=== PATIENT | male | born 1940 | race Caucasian/White ===

== ENCOUNTER → 2016-09-07 | Outpatient (CLI) | payer BC ==
[~2016-09-07] VITALS: Ht 175.3 cm; Wt 87.5 kg
[~2016-09-07] MED LIST: ATEN50TA2 PO; ATOR1TAB19 PO; FELO5TAB3 PO; GLIP5TAB15 PO; INVO100T PO; JANU100T PO; LIDOCAINE 2% INJ 100 MG/5 ML SDV (FOR ANES.) As Ordered ONE; LISI40TAB PO; METF1000 PO; NS 1,000 ML IV ONE; PROPOFOL 200 MG/20 ML VIAL As Ordered ONE
--- NOTE | 2016-09-07 10:49 | ROOR ---
Patient Name: Cristhian Lopez Procedure Date: 09/07/2016 10:24 AM Date of : 1940 Age: 75 Room: [facility] Gender: Male Note Status: Finalized Procedure: Colonoscopy to Cecum + APC Indications: Rectal bleeding, Follow-up of radiation proctitis, For therapy of radiation proctitis Providers: Ghulam Barr MD Referring MD: DEDE DENT JR, MD Requesting Provider: Medicines: Monitored Anesthesia Care Complications: No immediate complications. Procedure: Pre-Anesthesia Assessment: - The heart rate, respiratory rate, oxygen saturations, blood pressure, adequacy of pulmonary ventilation, and response to care were monitored throughout the procedure. The Colonoscope was introduced through the anus and advanced to the cecum, identified by appendiceal orifice and ileocecal valve. The colonoscopy was performed without difficulty. The patient tolerated the procedure well. The quality of the bowel preparation was excellent. Findings: The perianal and digital rectal examinations were normal. Non-bleeding internal hemorrhoids were found during retroflexion. The hemorrhoids were small and Grade I (internal hemorrhoids that do not prolapse). The mucosa vascular pattern in the rectum was diffusely increased. Coagulation for hemostasis using argon plasma at 1 liter/minute and 30 [place] was successful. Multiple small-mouthed diverticula were found in the recto-sigmoid colon, sigmoid colon and descending colon. The exam was otherwise without abnormality on direct and retroflexion views. Impression: - Non-bleeding internal hemorrhoids. - Increased mucosa vascular pattern in the rectum. Treated with argon plasma coagulation (APC). - Diverticulosis in the recto-sigmoid colon, in the sigmoid colon and in the descending colon. - The examination was otherwise normal on direct and retroflexion views. - No specimens collected. - The exam was otherwise normal to the cecum. Recommendation: - Patient has a contact number available for emergencies. The signs and symptoms of potential delayed complications were discussed with the patient. Return to normal activities tomorrow. Written discharge instructions were provided to the patient. - High fiber diet. - Discharge patient to home. - Continue present medications. - Repeat colonoscopy for symptoms only. - Return to referring physician. - The findings and recommendations were discussed with the patient's family. Ghulam Barr MD Ghulam Barr MD 09/07/2016 10:49:00 AM This report has been signed electronically. Number of Addenda: 0 Note Initiated On: 09/07/2016 10:24 AM Estimated Blood Loss: Estimated blood loss: none.
[2016-09-07 11:15] VITALS: BP 125/59
== END ==
LOC: M OPP 09:12
PROVIDERS: ATTEND Internal Medicine Gastroenterology
DX: Z09 Encounter for follow-up examination after completed treatment for conditions other than malignant neoplasm (principal); K62.7 Radiation proctitis; K62.5 Hemorrhage of anus and rectum; K64.0 First degree hemorrhoids; K57.30 Diverticulosis of large intestine without perforation or abscess without bleeding; Z86.010 Personal history of colon polyps; Z80.0 Family history of malignant neoplasm of digestive organs; Z85.46 Personal history of malignant neoplasm of prostate; Z92.3 Personal history of irradiation; I10 Essential (primary) hypertension; E11.9 Type 2 diabetes mellitus without complications; E78.5 Hyperlipidemia, unspecified; Z85.828 Personal history of other malignant neoplasm of skin; Z87.891 Personal history of nicotine dependence; Z79.84 Long term (current) use of oral hypoglycemic drugs; Z79.899 Other long term (current) drug therapy; Z88.1 Allergy status to other antibiotic agents

== ENCOUNTER → 2016-12-02 | Outpatient (CLI) | payer BC ==
[~2016-12-02] MED LIST changes: +FELO5TAB PO; -FELO5TAB3 PO; +GLIP1TAB49 PO; -GLIP5TAB15 PO; -LIDOCAINE 2% INJ 100 MG/5 ML SDV (FOR ANES.) As Ordered ONE; -METF1000 PO; +METF10004 PO; -NS 1,000 ML IV ONE; -PROPOFOL 200 MG/20 ML VIAL As Ordered ONE
--- NOTE | 2016-12-02 10:39 | RADONC ---
RADIATION ONCOLOGY FOLLOWUP NOTE DATE: 12/02/2016 CHART NUMBER: [id number] DIAGNOSIS: Prostate cancer. STAGE: IIB, [id number]. 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 The patient presents today reporting that he is doing quite well with no complaints at this time related to his radiation therapy or disease. He has no urinary or bowel difficulties, and no bone pain. REVIEW OF SYSTEMS: The patient's review of systems is noncontributory. He denies nausea, vomiting, fevers, chills, night sweats, diplopia, headaches, anxiety or depression, anorexia, weight loss, visual disturbances, chest pain, urinary or bowel difficulties, bone pain or neurological problems. PHYSICAL EXAMINATION: The patient is a well-developed, well-nourished male in no acute distress. HEENT exam is normocephalic, atraumatic. Extraocular movements are intact. There is no palpable cervical, supraclavicular, infraclavicular, axillary, or inguinal lymphadenopathy present. Lungs are clear to auscultation and percussion. Heart has a regular rate and rhythm. Abdomen is benign with no hepatosplenomegaly, masses, or tenderness. Rectal examination reveals a normal anal sphincter tone. His prostate is smooth with no evidence of nodularity. Skeletal examination reveals no tenderness to pressure or percussion of the bony skeleton. Extremities reveal no clubbing, cyanosis, or edema. Neurologic exam is grossly intact as is the remainder of the physical examination. ASSESSMENT: The patient is clinically BRODY at this time and will be seen by us again in 1 month for further followup. He will also continue to be followed by his other physicians as well. cc: MD Key Pacheco DO
== END ==
LOC: M ONCR 09:58
PROVIDERS: ATTEND Radiology Radiation Oncology
DX: C61 Malignant neoplasm of prostate (principal)

== ENCOUNTER → 2017-12-01 | Outpatient (CLI) | payer BC | LOC: M ONCR 10:13 | DX: Z08 Encounter for follow-up examination after completed treatment for malignant neoplasm (principal); Z85.46 Personal history of malignant neoplasm of prostate | CPT/HCPCS: G0463 ==

== ENCOUNTER → 2019-02-13 | Outpatient (REF) | payer BC ==
[~2019-02-13] MED LIST changes: -FELO5TAB PO; +FELO5TAB26 PO; -GLIP1TAB49 PO; +GLIP5TAB20 PO; +LISI40TA PO; -LISI40TAB PO
== END ==
LOC: M SFHCPLAZ 11:49
PROVIDERS: ATTEND Dermatology
DX: C44.329 Squamous cell carcinoma of skin of other parts of face (principal); L57.0 Actinic keratosis; L83 Acanthosis nigricans

== ENCOUNTER → 2019-04-27 | Outpatient (REF) | payer BC | LOC: M LAB REF 17:24 | PROVIDERS: ATTEND Dermatology | DX: C44.320 Squamous cell carcinoma of skin of unspecified parts of face (principal) ==

== ENCOUNTER → 2020-10-01 | Outpatient (CLI) | payer BC ==
[~2020-10-01] MED LIST changes: -LISI40TA PO; +LISI40TA4 PO
--- NOTE | 2020-10-01 09:10 | REP ---
INDICATION: HTN COMPARISON: None TECHNIQUE: Real time zavala scale ultrasound examination using curved array transducer followed by color Doppler evaluation of the renal vasculature. FINDINGS: Right kidney measures 11.6 x 5.7 x 5.0 cm and demonstrates few scattered small hypodensities measuring up to 1.3 cm likely representing simple and complex cysts. No hydronephrosis, nephrolithiasis or obvious mass lesion. Left kidney measures 12.8 x 4.5 x 5.2 cm and includes multiple hypodensities measuring up to 2.2 cm likely representing simple and complex cysts. No hydronephrosis, nephrolithiasis or obvious mass lesion. Increased central sinus fat noted bilaterally consistent with chronic age-related medical renal disease. Bladder is unremarkable. Color Doppler evaluation demonstrates tardus parvus waveforms and mild elevated resistive indices suggesting renovascular changes. Peak aortic velocity: 77.6 centimeters/second RIGHT KIDNEY Renal arterial velocity: 154.8 centimeters/second Renal-aortic ratio: 2.0 Intrarenal resistive indices: 0.73-0.75 Intrarenal acceleration times: 0.022-0.036 LEFT KIDNEY Renal arterial velocity: 86.6 centimeters/second Renal-aortic ratio: 1.1 Intrarenal resistive indices: 0.68-0.78 Intrarenal acceleration times: 0.020-0.039 IMPRESSION: 1. Kidneys demonstrate chronic medical renal disease and bilateral hypodensities likely representing simple and complex cysts.. 2. Doppler interegation suggests small vessel renovascular changes without definite evidence for renal arterial stenosis. <Electronically signed by Keegan Martínez > 10/01/20 [id number]
== END ==
LOC: M RAD 08:01
PROVIDERS: ATTEND Internal Medicine
DX: I12.9 Hypertensive chronic kidney disease with stage 1 through stage 4 chronic kidney disease, or unspecified chronic kidney disease (principal); N18.9 Chronic kidney disease, unspecified

== ENCOUNTER → 2020-11-25 | Outpatient (REF) | payer BC, MEDICARE ==
[2020-11-25 17:55] LABS: COMPLEMENT C3 120 MG/DL (90-180); COMPLEMENT C4 39 MG/DL (10-40); MAGNESIUM LEVEL 2.2 MG/DL (1.8-2.4); TOTAL PROTEIN 7.9 GM/DL (6.4-8.2)
[2020-11-25 18:07] LABS: HEPATITIS B SURFACE ANTIBODY POSITIVE (POSITIVE)
[2020-11-25 18:17] LABS: HEPATITIS B SURFACE ANTIGEN NEGATIVE (NEGATIVE)
[2020-11-25 18:45] LABS: HEPATITIS C VIRUS ABY INDEX 0.1 INDEX (<0.8)
[2020-11-25 18:46] LABS: HEPATITIS B CORE ANTIBODY IGM NEGATIVE (NEGATIVE)
[2020-11-26 11:19] LABS: ALBUMIN 4.54 GM/DL (3.29-5.55); ALBUMIN % 57.5 % (55.8-66.1); ALPHA-1-GLOBULIN % 3.6 % (2.9-4.9); ALPHA-1-GLOBULINS 0.28 GM/DL (0.17-0.41); ALPHA-2-GLOBULINS 0.86 GM/DL (0.42-0.99); ALPHA-2-GLOBULINS % 10.9 % (7.1-11.8); BETA-1-GLOBULINS 0.47 GM/DL (0.28-0.60); BETA-1-GLOBULINS % 5.9 % (4.7-7.2); BETA-2-GLOBULINS 0.43 GM/DL (0.19-0.55); BETA-2-GLOBULINS % 5.4 % (3.2-6.5); GAMMA GLOBULIN % 16.7 % (11.1-18.8); GAMMA GLOBULINS 1.32 GM/DL (0.65-1.58)
[2020-11-28 16:08] LABS: ANCA-ATYPICAL <1:20 titer (Neg:<1:20); CYTOPLASMIC NEUTROP AB ANCA-C <1:20 titer (Neg:<1:20); FREE KAPPA LIGHT CHAINS SERUM 89.9 mg/L (3.3-19.4); FREE LAMBDA LIGHT CHAINS SERUM 44.7 mg/L (5.7-26.3); KAPPA/LAMBDA RATIO SERUM 2.01 (0.26-1.65); PERINUCLEAR AB ANCA-P <1:20 titer (Neg:<1:20)
== END ==
LOC: M LAB REF 17:04
PROVIDERS: ATTEND Internal Medicine Nephrology
DX: N18.4 Chronic kidney disease, stage 4 (severe) (principal); R31.29 Other microscopic hematuria; R80.9 Proteinuria, unspecified; E83.42 Hypomagnesemia

== ENCOUNTER → 2021-01-16 | Outpatient (REF) | payer MEDICARE | LOC: M LAB REF 11:28 | PROVIDERS: ATTEND Internal Medicine | DX: N18.4 Chronic kidney disease, stage 4 (severe) (principal) ==

== ENCOUNTER → 2021-01-27 | Outpatient (REF) | payer MEDICARE ==
[2021-01-27 13:55] LABS: BACTERIA, URINE AUTO NEGATIVE (NEGATIVE); RBC, URINE AUTO 0 /HPF (0-3); SQUAMOUS EPITHELIAL CELL UR AU 0 /HPF (0-6); WBC, URINE AUTO 0 /HPF (0-3)
[2021-01-27 14:11] LABS: TOTAL PROTEIN,RANDOM URINE 77.9 MG/DL (0.0-12.0)
== END ==
LOC: M LAB REF 13:20
PROVIDERS: ATTEND Internal Medicine Nephrology
DX: E83.42 Hypomagnesemia (principal); N18.4 Chronic kidney disease, stage 4 (severe); R31.29 Other microscopic hematuria

== ENCOUNTER → 2021-03-26 | Outpatient (REF) | payer MEDICARE | LOC: M LAB REF 12:11 | PROVIDERS: ATTEND Internal Medicine | DX: N18.4 Chronic kidney disease, stage 4 (severe) (principal) ==

== ENCOUNTER → 2021-04-07 | Outpatient (CLI) | payer MEDICARE | LOC: M RAD 09:58 | PROVIDERS: ATTEND Internal Medicine Nephrology | DX: N18.4 Chronic kidney disease, stage 4 (severe) (principal) ==

== ENCOUNTER → 2021-05-13 | Outpatient (REF) | payer MEDICARE | LOC: M LAB REF 16:17 | PROVIDERS: ATTEND Internal Medicine | DX: N18.4 Chronic kidney disease, stage 4 (severe) (principal) ==

== ENCOUNTER → 2021-06-24 | Outpatient (REF) | payer MEDICARE | LOC: M LAB REF 11:50 | PROVIDERS: ATTEND Internal Medicine | DX: N18.4 Chronic kidney disease, stage 4 (severe) (principal) ==

== ENCOUNTER → 2021-07-29 | Outpatient (REF) | payer MEDICARE | LOC: M LAB REF 12:50 | PROVIDERS: ATTEND Internal Medicine | DX: N18.4 Chronic kidney disease, stage 4 (severe) (principal) ==

== ENCOUNTER → 2021-09-11 | Outpatient (REF) | payer MEDICARE | LOC: M LAB REF 12:12 | PROVIDERS: ATTEND Internal Medicine | DX: N18.4 Chronic kidney disease, stage 4 (severe) (principal) ==

== ENCOUNTER → 2022-05-18 | Outpatient (REF) | payer MEDICARE | LOC: M LAB REF 12:04 | PROVIDERS: ATTEND Internal Medicine | DX: N18.4 Chronic kidney disease, stage 4 (severe) (principal) ==

== ENCOUNTER → 2022-05-22 | Outpatient (REF) | payer MEDICARE | LOC: M SFHCDERM 12:01 | PROVIDERS: ATTEND Nurse Practitioner Family | DX: C44.509 Unspecified malignant neoplasm of skin of other part of trunk (principal) ==

== ENCOUNTER → 2022-08-14 | Outpatient (REF) | payer MEDICARE | LOC: M SFHCDERM 17:29 | PROVIDERS: ATTEND Dermatology | DX: L90.5 Scar conditions and fibrosis of skin (principal) ==

== ENCOUNTER → 2022-12-09 | Outpatient (REF) | payer MEDICARE ==
[2022-12-09 17:26] LABS: URIC ACID 10.1 MG/DL (3.7-9.2)
[2022-12-09 17:28] LABS: PHOSPHORUS LEVEL 3.6 MG/DL (2.4-5.1)
== END ==
LOC: M LAB REF 16:11
PROVIDERS: ATTEND Internal Medicine
DX: N18.4 Chronic kidney disease, stage 4 (severe) (principal); M10.9 Gout, unspecified

== ENCOUNTER → 2023-03-08 | Outpatient (REF) | payer MEDICARE | LOC: M LAB REF 16:41 | PROVIDERS: ATTEND Internal Medicine | DX: M10.9 Gout, unspecified (principal) ==

== ENCOUNTER → 2023-06-15 | Outpatient (REF) | payer MEDICARE ==
[2023-06-15 14:11] LABS: PHOSPHORUS LEVEL 3.5 MG/DL (2.4-5.1)
[2023-06-15 14:51] LABS: PTH INTACT 58.5 PG/ML (18.5-88.0)
== END ==
LOC: M LAB REF 13:19
PROVIDERS: ATTEND Internal Medicine
DX: N25.81 Secondary hyperparathyroidism of renal origin (principal); N18.4 Chronic kidney disease, stage 4 (severe)

== ENCOUNTER → 2023-09-15 | Outpatient (REF) | payer MEDICARE ==
[2023-09-15 15:28] LABS: CREATININE,RANDOM URINE 124.9 MG/DL
[2023-09-15 15:30] LABS: TOTAL PROTEIN,RANDOM URINE 205.3 MG/DL (0.0-14.0)
== END ==
LOC: M LAB REF 12:53
PROVIDERS: ATTEND Internal Medicine Nephrology
DX: E11.22 Type 2 diabetes mellitus with diabetic chronic kidney disease (principal)

== ENCOUNTER → 2023-09-23 | Outpatient (REF) | payer MEDICARE ==
[2023-09-23 15:08] LABS: URIC ACID 8.7 MG/DL (3.7-9.2)
[2023-09-23 15:10] LABS: PHOSPHORUS LEVEL 3.6 MG/DL (2.4-5.1)
== END ==
LOC: M LAB REF 12:17
PROVIDERS: ATTEND Internal Medicine
DX: M10.9 Gout, unspecified (principal); N18.4 Chronic kidney disease, stage 4 (severe)

== ENCOUNTER → 2024-01-28 | Outpatient (REF) | payer MEDICARE ==
[2024-01-28 13:42] LABS: URIC ACID 8.7 MG/DL (3.7-9.2)
[2024-01-28 13:45] LABS: PHOSPHORUS LEVEL 3.8 MG/DL (2.4-5.1); PTH INTACT 54.2 PG/ML (18.5-88.0)
== END ==
LOC: M LAB REF 12:54
PROVIDERS: ATTEND Internal Medicine
DX: N25.81 Secondary hyperparathyroidism of renal origin (principal); N18.4 Chronic kidney disease, stage 4 (severe)

== ENCOUNTER → 2024-05-26 | Outpatient (REF) | payer MEDICARE ==
[2024-05-26 18:59] LABS: CREATININE,RANDOM URINE 58.1 MG/DL; TOTAL PROTEIN,RANDOM URINE 130.3 MG/DL (0.0-14.0)
== END ==
LOC: M LAB REF 17:05
PROVIDERS: ATTEND Internal Medicine Nephrology
DX: R80.1 Persistent proteinuria, unspecified (principal)

== ENCOUNTER → 2024-08-01 | Outpatient (REF) | payer MEDICARE ==
[~2024-08-01] MED LIST changes: +GLIP-318 PO; -GLIP5TAB20 PO
[2024-08-01 17:53] LABS: TOTAL PROTEIN,RANDOM URINE 82.1 MG/DL (0.0-14.0)
[2024-08-01 17:58] LABS: CREATININE,RANDOM URINE 122.2 MG/DL
== END ==
LOC: M LAB REF 16:59
PROVIDERS: ATTEND Internal Medicine Nephrology
DX: R80.1 Persistent proteinuria, unspecified (principal)

== ENCOUNTER → 2024-08-24 | Outpatient (REF) | payer MEDICARE ==
[2024-08-24 13:35] LABS: PTH INTACT 98.4 PG/ML (18.5-88.0); URIC ACID 8.4 MG/DL (3.7-9.2)
== END ==
LOC: M LAB REF 12:51
PROVIDERS: ATTEND Internal Medicine
DX: N18.4 Chronic kidney disease, stage 4 (severe) (principal)

== ENCOUNTER → 2024-08-25 | Outpatient (REF) | payer MEDICARE | LOC: M LAB REF 13:30 | PROVIDERS: ATTEND Internal Medicine | DX: Z23 Encounter for immunization (principal) ==

== ENCOUNTER → 2024-12-22 | Outpatient (REF) | payer MEDICARE ==
[~2024-12-22] MED LIST changes: +LISI40TA10 PO; -LISI40TA4 PO
[2024-12-22 15:15] LABS: PHOSPHORUS LEVEL 4.5 MG/DL (2.4-5.1)
[2024-12-22 15:16] LABS: PTH INTACT 84.5 PG/ML (18.5-88.0)
== END ==
LOC: M LAB REF 14:02
PROVIDERS: ATTEND Internal Medicine
DX: N18.4 Chronic kidney disease, stage 4 (severe) (principal)

== ENCOUNTER → 2025-01-04 | Outpatient (CLI) | payer MEDICARE | LOC: M CARPUL 14:18 | PROVIDERS: ATTEND Internal Medicine Cardiovascular Disease | DX: I48.91 Unspecified atrial fibrillation (principal); I35.0 Nonrheumatic aortic (valve) stenosis ==

== ENCOUNTER → 2025-01-09 | Outpatient (CLI) | payer MEDICARE | LOC: M EKG 09:33 | PROVIDERS: ATTEND Registered Nurse | DX: I48.91 Unspecified atrial fibrillation (principal) ==

== ENCOUNTER → 2025-01-25 | Outpatient (REF) | payer MEDICARE | LOC: M SFHCDERM 08:20 | PROVIDERS: ATTEND Physician Assistant | DX: C44.92 Squamous cell carcinoma of skin, unspecified (principal) ==

== ENCOUNTER → 2025-02-23 | Outpatient (CLI) | payer MEDICARE | LOC: M SLEEP HO 11:11 | PROVIDERS: ATTEND Nurse Practitioner Family | DX: G47.33 Obstructive sleep apnea (adult) (pediatric) (principal); I48.91 Unspecified atrial fibrillation ==

== ENCOUNTER → 2025-03-30 | Outpatient (REF) | payer MEDICARE ==
[2025-04-01 08:18] LABS: LDL DIRECT 63 mg/dL (<100)
== END ==
LOC: M LAB REF 12:31
PROVIDERS: ATTEND Internal Medicine
DX: I48.91 Unspecified atrial fibrillation (principal); E78.00 Pure hypercholesterolemia, unspecified

== ENCOUNTER → 2025-04-25 | Outpatient (CLI) | payer MEDICARE | LOC: M SLEEP 20:00 | PROVIDERS: ATTEND Physician Assistant | DX: G47.33 Obstructive sleep apnea (adult) (pediatric) (principal) ==

== ENCOUNTER → 2025-05-07 | Outpatient (REF) | payer MEDICARE | LOC: M LAB REF 14:12 | PROVIDERS: ATTEND Internal Medicine | DX: I48.91 Unspecified atrial fibrillation (principal) ==